=== PATIENT | female | born 1985 | race Two or more races ===

== ENCOUNTER 2022-10-07 14:51 | Emergency (ER) | payer OTHER ==
[~2022-10-07] VITALS: Ht 167.6 cm; Wt 61.2 kg
[2022-10-07] MEDS ORDERED: ONDANSETRON HCL4 MG PO (15:31)
== END 2022-10-07 18:06 | disposition home or self-care (01) ==
LOC: ER 14:51
DX: O98.511 Other viral diseases complicating pregnancy, first trimester (principal); Z3A.09 9 weeks gestation of pregnancy; Z20.822 Contact with and (suspected) exposure to COVID-19; B34.9 Viral infection, unspecified

== ENCOUNTER 2024-09-28 13:08 | Inpatient (IN) | payer OTHER ==
[~2024-09-28] VITALS: Ht 167.6 cm; Wt 72.6 kg
[2024-09-28 12:44] VITALS: BP 131/78
[~2024-09-28 13:08] MED LIST: ONDANSETRON HCL4 MG PO
[2024-09-28] MEDS ORDERED: AMPICILLIN SODIUM 2,000 MG VIAL IV NR (13:30)
[2024-09-28] MEDS ORDERED: RINGERS SOLUTION,LACTATED 1,000 ML IV SCH (13:30)
[2024-09-28 14:15] LABS: BASO % 0.2 % (0.1-1.2); EOS # 0.06 (0.04-0.54); EOS % 0.7 % (0.7-7.0); LYMPH # 1.59 (1.18-3.74); LYMPH % 18.8 % (19.3-53.1); MEAN PLATELET VOLUME 10.40 fl (9.4-12.4); MONO # 0.54 (0.24-0.82); MONO % 6.4 % (4.7-12.5); NEUT # 6.21 (1.56-6.13); NEUT % 73.4 % (34.0-71.1); RED CELL DISTRIBUTION WIDTH 12.8 % (11.6-14.4)
[2024-09-28 14:18] LABS: URINE APPEARANCE Cloudy; URINE BILIRRUBIN Negative (NEGATIVE); URINE BLOOD Negative; URINE COLOR Yellow; URINE KETONE Trace (NEGATIVE); URINE LEUKOCYTE Small; URINE NITRATE Negative; URINE PROTEIN Trace (NEGATIVE); URINE UROBILINOGEN 1.0 E.U./dl
[2024-09-28 14:22] LABS: URINE BACTERIA 4441.2 uL (0.0-1933); URINE EPITHELIAL CELLS 82.7 uL (0.0-38.8); URINE RBC 7.4 uL (0.0-20.8); URINE WBC 150.7 uL (0.0-23.2)
[2024-09-28] MEDS ORDERED: PRENATAL TABLE1 EAC1 PO (14:26)
[2024-09-28 14:39] LABS: INR 0.94
[2024-09-28] MEDS ORDERED: OXYTOCIN 500 ML IV SCH (15:00)
[2024-09-28 15:06] LABS: ALT/SGPT 17.0 U/L (12-78); AST/SGOT 14.0 U/L (15-37); BILIRUBIN TOTAL 0.82 mg/dL (0.3-1.2); BUN CREA RATIO 10.0 (7.0-25.0); CREATININE SERUM 0.67 mg/dL (0.55-1.02); GFR 98.5; GLOBULINA 3.4 G/DL (2.4-3.5); GLUCOSE FASTING 151.0 mg/dL (65-100); OSMOLALITY SERUM 282.0 MOSM/KG (275-295); URINE CAST 0.87 uL (0.0-1.40); URINE GLUCOSE >=1000 MG/DL (NEGATIVE)
[2024-09-28 15:59] VITALS: BP 138/76
[2024-09-28] MEDS ORDERED: CITRIC ACID/SODIUM CITRATE 30 ML BLIST.PACK PO ONE (20:45)
[2024-09-28 20:50] VITALS: BP 142/78
[2024-09-28] MEDS ORDERED: ACETAMINOPHEN 500 MG GEL..CAP PO NR (21:00)
[2024-09-28 23:31] VITALS: BP 147/68
[2024-09-29] VITALS (8 sets, daily range): BP systolic 113–140; BP diastolic 63–78
[2024-09-29] MEDS ORDERED: CHLORHEXIDINE GLUCONATE 120 ML BOTTLE TOP ONE (01:45)
[2024-09-29] MEDS ORDERED: OXYTOCIN 20 UNITS/1000ML RL PIGGYBAG IV SCH (01:45)
[2024-09-29] MEDS ORDERED: ERYTHROMYCIN BASE OPHT 1GM EACH TUBE OP ONE (01:45)
[2024-09-30 08:37] VITALS: BP 120/72
== END 2024-09-30 15:08 | disposition home or self-care (01) | DRG 807 ==
LOC: LDR 13:08 → OB/GYN 09-29 08:06
PROVIDERS: ADMIT Specialist; ATTEND Specialist
PROC: 4A1HXCZ Monitoring of Products of Conception, Cardiac Rate, External Approach (ICD-10-PCS; 2024-09-28)
PROC: 10E0XZZ Delivery of Products of Conception, External Approach (ICD-10-PCS; principal; 2024-09-29)
DX: O60.14X0 Preterm labor third trimester with preterm delivery third trimester, not applicable or unspecified (principal); Z37.0 Single live birth; O69.81X0 Labor and delivery complicated by cord around neck, without compression, not applicable or unspecified; Z3A.36 36 weeks gestation of pregnancy